=== PATIENT | female | born 1940 | race Caucasian/White ===

== ENCOUNTER 2018-07-23 18:28 | Emergency (ER) | payer OTHER ==
[2018-07-23 19:31] LABS: Absolute Monocytes 0.6 K/uL (0.1-1.3); Absolute Neutrophil 1.8 K/uL (1.8-8.0); Basophils % 0.9 % (0-1.3); Eosinophils % 2.2 % (0-4.4); Hematocrit 38.7 % (36.0-45.0); Lymphocytes % 28.4 % (15.3-44.8); MCH 32.6 pg (27.0-35.0); MCV 95.1 fL (80-100); MPV 8.7 fL (7.6-11.3); RBC Red Blood Cell Count 4.07 M/uL (3.86-4.86)
[2018-07-23 19:34] LABS: Protime INR 0.98
--- NOTE | 2018-07-23 19:37 | RAD REPORT ---
EXAM DESCRIPTION: RAD - Chest Single View - 07/23/2018 7:21 pm CLINICAL HISTORY: Palpitations, a arrhythmia COMPARISON: None. TECHNIQUE: AP portable chest image was obtained 1916 hours . FINDINGS: Chronic interstitial lung disease is evident. No focal mass or consolidation. Patient has prominent costochondral calcifications. Heart and vasculature are normal. No measurable pleural effus ion and no pneumothorax. No acute bony abnormality seen. No acute aortic findings suspected. IMPRESSION: No acute cardiopulmonary process.
[2018-07-23 19:57] LABS: ALT/SGPT 29 U/L (12-78); AST/SGOT 21 U/L (15-37); Albumin 3.7 g/dL (3.4-5.0); Alkaline Phosphatase 80 U/L (45-117); BUN Blood Urea Nitrogen 23 mg/dL (7-18); Bicarbonate 29 mmol/L (21-32); Bilirubin Direct 0.1 mg/dL (0-0.2); Bilirubin Total 0.4 mg/dL (0.2-1.0); Glucose Level 109 mg/dL (74-106); Magnesium 2.3 mg/dL (1.8-2.4); NT PRO-BNP 448 pg/mL (<450); Potassium 3.9 mmol/L (3.5-5.1); Protein, Total 6.7 g/dL (6.4-8.2); Sodium Level 141 mmol/L (136-145); Troponin (Emerg Dept Use Only) < 0.02 ng/mL (0.0-0.045)
[2018-07-23 20:07] LABS: Blood Morphology Comment NOT SEEN (NOT SEEN); Platelet Estimate ADEQ; Urine White Blood Cell Casts OK
--- NOTE | 2018-07-23 20:38 | EDPHYS ---
Physician Documentation [facility] Name: Ai Ortega Age: 78 yrs Sex: Female : 1940 Arrival Date: 07/23/2018 Time: 18:31 Bed 19 Private MD: Mikie Corrigan V ED Physician Claude Patel HPI: 07/23 19:19 This 78 yrs old Female presents to ER via Ambulatory with complaints of HEART kb RACING. 19:19 The patient presents with a history of heart racing. Context: The symptoms occur at kb rest. Onset: The symptoms/episode began/occurred 3 day(s) ago. Duration: The patient or guardian reports a single episode, that is still ongoing, but improving. Modifying factors: The symptoms are aggravated by nothing. The symptoms are alleviated by nothing. Associated signs and symptoms: The patient has no apparent associated signs or symptoms, Pertinent negatives: chest pain, SOB, syncope. Severity of symptoms: At their worst the symptoms were moderate in the emergency department the symptoms are unchanged. The patient has experienced similar episodes in the past, multiple times, and the symptoms today are exactly the same. The patient has not recently seen a physician. Historical: - Allergies: 18:43 No Known Allergies; hj - Home Meds: 18:43 Plaquenil 200 mg Oral tab 1 tab once daily [Active]; losartan 50 mg oral tab 1 tab once hj daily [Active]; metoprolol tartrate 12.5 mg Oral tab 1 tab once daily [Active]; Restasis 0.05 % ophthalmic dpet 1 drop 2 times per day [Active]; Zantac 150 mg Oral tab 1 tab 2 times per day [Active]; - PMHx: 18:43 Lupus; Hypertension; hj - PSHx: 18:43 cataract; hj - Immunization history:: Adult Immunizations up to date. - Social history:: Smoking status: Patient/guardian denies using tobacco, Patient/guardian denies using alcohol. - Ebola Screening: : Patient negative for fever greater than or equal to 101.5 degrees Fahrenheit, and additional compatible Ebola Virus Disease symptoms Patient denies exposure to infectious person Patient denies travel to an Ebola-affected area in the 21 days before illness onset. ROS: 19:18 Constitutional: Negative for fever, chills, and weight loss, ENT: Negative for injury, kb pain, and discharge, Neck: Negative for injury, pain, and swelling, Respiratory: Negative for shortness of breath, cough, wheezing, and pleuritic chest pain, Abdomen/GI: Negative for abdominal pain, nausea, vomiting, diarrhea, and constipation, Back: Negative for injury and pain, : Negative for injury, bleeding, discharge, and swelling, MS/Extremity: Negative for injury and deformity, Skin: Negative for injury, rash, and discoloration, Neuro: Negative for headache, weakness, numbness, tingling, and seizure. 19:18 Cardiovascular: Positive for palpitations, Negative for chest pain, edema, orthopnea, paroxysmal nocturnal dyspnea. Exam: 19:19 Constitutional: This is a well developed, well nourished patient who is awake, alert, kb and in no acute distress. Head/Face: Normocephalic, atraumatic. ENT: Nares patent. No nasal discharge, no septal abnormalities noted. Tympanic membranes are normal and external auditory canals are clear. Oropharynx with no redness, swelling, or masses, exudates, or evidence of obstruction, uvula midline. Mucous membranes moist. Neck: Trachea midline, no thyromegaly or masses palpated, and no cervical lymphadenopathy. Supple, full range of motion without nuchal rigidity, or vertebral point tenderness. No Meningismus. Chest/axilla: Normal chest wall appearance and motion. Nontender with no deformity. No lesions are appreciated. Cardiovascular: Regular rate and rhythm with a normal S1 and S2. No gallops, murmurs, or rubs. Normal PMI, no JVD. No pulse deficits. Respiratory: Lungs have equal breath sounds bilaterally, clear to auscultation and percussion. No rales, rhonchi or wheezes noted. No increased work of breathing, no retractions or nasal flaring. Abdomen/GI: Soft, non-tender, with normal bowel sounds. No distension or tympany. No guarding or rebound. No evidence of tenderness throughout. Skin: Warm, dry with normal turgor. Normal color with no rashes, no lesions, and no evidence of cellulitis. MS/ Extremity: Pulses equal, no cyanosis. Neurovascular intact. Full, normal range of motion. Neuro: Awake and alert, GCS 15, oriented to person, place, time, and situation. Cranial nerves II-XII grossly intact. Motor strength 5/5 in all extremities. Sensory grossly intact. Cerebellar exam normal. Normal gait. Vital Signs: 18:43 BP 132 / 82; Pulse 73; Resp 18; Temp 97.5(O); Pulse Ox 100% on R/A; Weight 54.43 kg; hj Height 5 ft. 3 in. (160.02 cm); Pain 0/10; 20:08 BP 135 / 60; Pulse 65; Resp 13; Pulse Ox 99% on R/A; Pain 0/10; ak1 18:43 Body Mass Index 21.26 (54.43 kg, 160.02 cm) hj MDM: 19:02 Patient medically screened. kb 19:18 Data reviewed: vital signs, nurses notes. Data interpreted: Pulse oximetry: on room air kb is 100 %. Interpretation: normal. 20:32 Counseling: I had a detailed discussion with the patient and/or guardian regarding: the kb historical points, exam findings, and any diagnostic results supporting the discharge/admit diagnosis, lab results, radiology results, the need for outpatient follow up, a lab scientist, a family practitioner, to return to the emergency department if symptoms worsen or persist or if there are any questions or concerns that arise at home. 20:37 ED course: symptoms have resolved. . kb 07/23 19:02 Order name: Basic Metabolic Panel 07/23 19:02 Order name: CBC with Diff 07/23 19:02 Order name: LFT's 07/23 19:02 Order name: Magnesium 07/23 19:02 Order name: NT PRO-BNP 07/23 19:02 Order name: PT-INR 07/23 19:02 Order name: Troponin (emerg Dept Use Only) 07/23 19:33 Order name: CBC with Automated Diff; Complete Time: 20:15 EDMS 07/23 19:36 Order name: Protime (+INR); Complete Time: 19:37 EDMS 07/23 19:57 Order name: Basic Metabolic Panel; Complete Time: 20:15 EDMS 07/23 19:57 Order name: Liver (Hepatic) Function; Complete Time: 20:15 EDMS 07/23 19:57 Order name: Troponin (Emerg Dept Use Only); Complete Time: 20:15 EDMS 07/23 19:57 Order name: NT PRO-BNP; Complete Time: 20:15 EDMS 07/23 19:57 Order name: Magnesium; Complete Time: 20:15 EDMS 07/23 19:02 Order name: XRAY Chest (1 view) kb 07/23 19:02 Order name: EKG; Complete Time: 19:03 kb 07/23 19:02 Order name: Cardiac monitoring; Complete Time: 19:02 kb 07/23 19:02 Order name: EKG - Nurse/Tech; Complete Time: 19:02 kb 07/23 19:02 Order name: IV Saline Lock; Complete Time: 19:02 kb 07/23 19:02 Order name: Labs collected and sent; Complete Time: 19:02 kb 07/23 19:02 Order name: O2 Per Protocol; Complete Time: 19:02 kb 07/23 19:02 Order name: O2 Sat Monitoring; Complete Time: 19:03 kb 07/23 19:37 Order name: RAD; Complete Time: 19:38 EDMS 07/23 20:08 Order name: CBC Smear Scan; Complete Time: 20:15 EDMS Administered Medications: No medications were administered Disposition: 07/24 16:28 Co-signature as Attending Physician, Claude Patel MD. Disposition: 07/23/18 20:37 Discharged to Home. Impression: Palpitations. - Condition is Stable. - Discharge Instructions: Palpitations, [id number]. - Medication Reconciliation Form, Thank You Letter, Antibiotic Education, Prescription Opioid Use form. - Follow up: Emergency Department; When: As needed; Reason: Worsening of condition. Follow up: Mikie Corrigan; When: 2 - 3 days; Reason: Recheck today's complaints, Continuance of care, Re-evaluation by your physician. Signatures: Dispatcher [employer] EDCA Manju Adair, MIKEY-C OIL TRUCK DRIVER-Concepción Ferrari RN RN ak1 Narendra Peña RN RN hj Starr, Gregory, MD MD Corrections: (The following items were deleted from the chart) 07/23 20:52 20:37 07/23/2018 20:37 Discharged to Home. Impression: Palpitations. Condition is ak1 Stable. Discharge Instructions: Palpitations, [id number]. Forms are Medication Reconciliation Form, Thank You Letter, Antibiotic Education, Prescription Opioid Use. Follow up: Emergency Department; When: As needed; Reason: Worsening of condition. Follow up: Mikie Corrigan; When: 2 - 3 days; Reason: Recheck today's complaints, Continuance of care, Re-evaluation by your physician. kb
--- NOTE | 2018-07-23 20:38 | ER ---
Nurse's Notes [facility] Name: Ai Ortega Age: 78 yrs Sex: Female : 1940 Arrival Date: 07/23/2018 Time: 18:31 Bed 19 Private MD: Mikie Corrigan V Diagnosis: Palpitations Presentation: 07/23 18:39 Presenting complaint: Patient states: hx of heart flutter, last Tuesday, i started hj feeling the flutter again and it didn't go away, been taking metoprolol but still having this flutter feeling; denies chest pain; denies N/V;. Transition of care: patient was not received from another setting of care. Onset of symptoms was July 23, 2018. Risk Assessment: Do you want to hurt yourself or someone else? Patient reports no desire to harm self or others. Initial Sepsis Screen: Does the patient meet any 2 criteria? No. Patient's initial sepsis screen is negative. Does the patient have a suspected source of infection? No. Patient's initial sepsis screen is negative. Care prior to arrival: None. 18:39 Method Of Arrival: Ambulatory 18:39 Acuity: KATE 3 hj Triage Assessment: 18:43 General: Appears in no apparent distress. uncomfortable, Behavior is calm, cooperative, hj appropriate for age. Pain: Denies pain. Historical: - Allergies: 18:43 No Known Allergies; hj - Home Meds: 18:43 Plaquenil 200 mg Oral tab 1 tab once daily [Active]; losartan 50 mg oral tab 1 tab once hj daily [Active]; metoprolol tartrate 12.5 mg Oral tab 1 tab once daily [Active]; Restasis 0.05 % ophthalmic dpet 1 drop 2 times per day [Active]; Zantac 150 mg Oral tab 1 tab 2 times per day [Active]; - PMHx: 18:43 Lupus; Hypertension; hj - PSHx: 18:43 cataract; hj - Immunization history:: Adult Immunizations up to date. - Social history:: Smoking status: Patient/guardian denies using tobacco, Patient/guardian denies using alcohol. - Ebola Screening: : Patient negative for fever greater than or equal to 101.5 degrees Fahrenheit, and additional compatible Ebola Virus Disease symptoms Patient denies exposure to infectious person Patient denies travel to an Ebola-affected area in the 21 days before illness onset. Screenin:44 Abuse screen: Denies threats or abuse. Denies injuries from another. Nutritional hj screening: No deficits noted. Tuberculosis screening: No symptoms or risk factors identified. Fall Risk None identified. Assessment: 18:59 General: Appears in no apparent distress. Behavior is calm, cooperative. Pain: Denies ak1 pain. Neuro: No deficits noted. Cardiovascular: Reports heart racing. pt heart rate at 68bpm. Respiratory: No deficits noted. GI: No signs and/or symptoms were reported involving the gastrointestinal system. : No signs and/or symptoms were reported regarding the genitourinary system. EENT: No signs and/or symptoms were reported regarding the EENT system. Derm: No signs and/or symptoms reported regarding the dermatologic system. Musculoskeletal: No signs and/or symptoms reported regarding the musculoskeletal system. 20:19 Reassessment: Patient appears in no apparent distress at this time. Patient is alert, ak1 oriented x 3, equal unlabored respirations, skin warm/dry/pink. pt denies feeling any "heart racing" since being in ER19. pt asked could she go home now, pt and family informed of wait for lab results. will continue to monitor. Vital Signs: 18:43 BP 132 / 82; Pulse 73; Resp 18; Temp 97.5(O); Pulse Ox 100% on R/A; Weight 54.43 kg; hj Height 5 ft. 3 in. (160.02 cm); Pain 0/10; 20:08 BP 135 / 60; Pulse 65; Resp 13; Pulse Ox 99% on R/A; Pain 0/10; ak1 18:43 Body Mass Index 21.26 (54.43 kg, 160.02 cm) ED Course: 18:31 Patient arrived in ED. sb2 18:32 Mikie Corrigan MD is Private Physician. sb2 18:40 Triage completed. hj 18:44 Arm band placed on right wrist. hj 18:44 Patient has correct armband on for positive identification. Placed in gown. Bed in low hj position. Call light in reach. Side rails up X 1. Adult w/ patient. 18:55 EKG done, by ED staff, reviewed by Claude Patel MD. em 18:58 Concepción Sim, RN is Primary Nurse. ak1 18:59 compliance monitor on. Pulse ox on. NIBP on. ak1 19:01 [facility]air [facility]C [facility]. kb 19:01 Claude Patel MD is Attending Physician. kb 19:05 Inserted saline lock: 20 gauge in right antecubital area, using aseptic technique. ds4 Blood collected. 19:15 Troponin (emerg Dept Use Only) Sent. ds4 19:15 PT-INR Sent. ds4 19:15 NT PRO-BNP Sent. ds4 19:15 Magnesium Sent. ds4 19:15 LFT's Sent. ds4 19:15 CBC with Diff Sent. ds4 19:15 Basic Metabolic Panel Sent. ds4 19:21 Door closed. Warm blanket given. ak1 20:37 Mikie Corrigan MD is Referral Physician. kb 20:49 No provider procedures requiring assistance completed. IV discontinued, intact, ak1 bleeding controlled, No redness/swelling at site. Pressure dressing applied. Administered Medications: No medications were administered Outcome: 20:37 Discharge ordered by . kb 20:50 Discharged to home ambulatory, with family. ak1 20:50 Condition: good 20:50 Discharge instructions given to patient, family, Instructed on discharge instructions, follow up and referral plans. Demonstrated understanding of instructions, follow-up care. 20:52 Patient left the ED. ak1 Signatures: Manju Adair FNP-C WARRANT SERVER-Ckb Randolph Stokes, PROFESSOR OF ENVIRONMENTAL ENGINEERING PROFESSOR OF ENVIRONMENTAL ENGINEERING em Anselmo Frank ds4 Concepción Sim, RN RN ak1 Narendra Peña, Aparna Sharma RN sb2
[2018-07-23 21:01] VITALS: BP 135/60; O2SAT 99
[2018-07-23 21:03] VITALS: TEMP 97.5
--- NOTE | 2018-07-24 07:05 | EKG ---
Test Date: 2018-07-23 Test Time: 18:49:13 Bridge Mechanic: LES MEASUREMENT RESULTS: Intervals: Rate: 67 MS: 146 QRSD: 86 QT: 406 QTc: 429 [place]: P: 46 MS: 146 QRS: 71 T: 60 INTERPRETIVE STATEMENTS: Normal sinus rhythm Anterior infarct, age undetermined Abnormal ECG Compared to ECG 12/18/2002 08:24:00 Sinus tachycardia no longer present Myocardial infarct finding still present Electronically Signed On 07-24-18 07:03:52 GAS BLENDER by Leroy Avina
== END 2018-07-23 20:52 | disposition home or self-care (01) ==
LOC: ER 18:28
DX: R00.2 Palpitations (principal); I10 Essential (primary) hypertension
CPT/HCPCS: 36415; 71045; 80048; 80076; 83735; 83880; 84484; 85025; 85610; 93005; 99284